=== PATIENT | female | born 1955 | race Caucasian/White ===

== ENCOUNTER → 2022-10-23 14:06 | Outpatient (CLI) | payer MEDICARE, BC, SELFPAY ==
--- NOTE | 2022-10-23 14:07 | US_ITS ---
FINAL REPORT CLINICAL HISTORY: pelvic mass FINDINGS: Transvaginal sonographic images of the pelvis were obtained. The uterus shows significant endometrial thickening for postmenopausal female. The endometrial stripe measures 14 mm. There is no evidence of uterine fibroids. The ovaries are unremarkable. There is no significant free fluid. IMPRESSION: Marked abnormal thickening of the endometrium in a postmenopausal female. Recommend gynecologic consultation for further evaluation. Reviewed, Interpreted and Dictated by Karoline Tsai MD Transcribed by Tash Sigala Authenticated and [facility]
== END ==
PROVIDERS: PCP Obstetrics & Gynecology; Visit Provider Obstetrics & Gynecology
DX: R19.00 Intra-abdominal and pelvic swelling, mass and lump, unspecified site (principal); R93.5 Abnormal findings on diagnostic imaging of other abdominal regions, including retroperitoneum
CPT/HCPCS: 76830

== ENCOUNTER → 2022-12-19 11:17 | Outpatient (CLI) | payer MEDICARE, BC, SELFPAY ==
[2022-12-19 12:06] LABS: Basophils % 0.6 % (0.1-2.0); Eosinophils # 0.1 K/mm3 (0.0-0.4); Eosinophils % 2.7 % (0.1-12.0); Hematocrit 41.3 % (37.0-47.0); Hemoglobin 13.3 g/dL (12.2-16.2); Lymphocytes # 1.4 K/mm3 (0.7-4.5); Lymphocytes % 36.2 % (10-50); Mean Corpuscular HGB Conc 32.2 g/dL (31.8-35.4); Mean Corpuscular Volume 96.1 fl (81-99); Mean Platelet Volume 7.5 fl (7.4-10.4); Monocytes # 0.2 K/mm3 (0.1-1.0); Monocytes % 5.8 % (1.7-9.3); Neutrophils # 2.1 K/mm3 (1.8-7.8); Neutrophils % 54.7 % (37.0-80.0); Platelet Count 234 K/mm3 (142-424); Red Cell Distribution Width 13.1 % (11.5-17.5); White Blood Count 3.8 K/mm3 (4.8-10.8)
[2022-12-19 12:41] LABS: Alanine Aminotransferase 22 U/L (12-78); Albumin Level 3.8 g/dl (3.5-5.0); Albumin/Globulin Ratio 1.5 (1.1-1.8); Alkaline Phosphatase 94 U/L (38-126); Anion Gap 10.4 mEq/L (5-15); Aspartate Amino Transferase 28 U/L (14-36); Bilirubin,Total 0.5 mg/dl (0.2-1.3); Blood Urea Nitrogen 20 mg/dl (7-17); Carbon Dioxide 25 mmol/L (22.0-30.0); Chloride 109 mmol/L (98-107); Estimated Glomerular Filt Rate 84 ml/min (>60); GFR (African American) 101 ML/MIN (>60); Globulin 2.5 g/dL (1.3-3.2); Glucose 71 mg/dl (74-100); Potassium 4.4 mmoL/L (3.5-5.1); Sodium 140 mmol/L (136-145); Total Protein,Serum 6.3 g/dl (6.3-8.2)
== END ==
PROVIDERS: Visit Provider Obstetrics & Gynecology
DX: R93.89 Abnormal findings on diagnostic imaging of other specified body structures (principal)
CPT/HCPCS: 36415; 80053; 85025

== ENCOUNTER 2022-12-31 06:02 | Day surgery (SDC) | payer MEDICARE, BC, SELFPAY ==
[2022-12-30 10:53] VITALS: BMI 23.0
[2022-12-31 06:17] VITALS: BP 118/71; PULSE 79; RESP 18; TEMP 36.3; O2SAT 93
--- NOTE | 2022-12-31 07:08 | P.PNANES_ITS ---
[facility] Disclaimer: The information contained in this section may have been updated after the patient was seen, as this information can be updated by other users. Medical History History of hypertension Pelvic organ prolapse quantification stage 3 cystocele Thickened endometrium Urge urinary incontinence Uterine prolapse Surgical History History of back surgery History of section History of tubal ligation Family History Other Family history of cancer Social History Smoking Status: Never smoker alcohol intake: never substance use type: denies use current occupational status: retired Travel in the last 8 weeks: None [facility] Anesthesia Checklist Patient Identification Patient Identification: Arm Band and Family Structural Data Admitted From: Home Planned Operative Procedure/s: D & C Hysteroscopy, novasure, myosure. Consent for Planned Operative Procedure(s) Verified: Yes Verified Documents: Surgical Consent NPO Status Verified Time NPO: 00:00 Additional verifications Patient : No Anesthesia Reactions: No Hx Blood Transfusions: No Blood Transfusion Reaction: No Cephalosporin Allergy: No Previous Colonoscopy: Yes Airway Assessment C-Spine Mobility Assessed: Yes TMJ Mobility Assessed: Yes Dentition: Good Dentition Neurological Assessment Level of Consciousness: Awake, Alert, Appropriate and Follows Commands Hx Seizures: No Numbness or tingling in extremities: No Anesthesia Plan Anesthesia Risk discussed: Yes ASA Class: II Anesthesia Type: General Preoperative Comments Pre-Operative Comments: Migraines. Mild hypertension.
--- NOTE | 2022-12-31 07:38 | EXP.ANES.CKL ---
[facility] Disclaimer: The information contained in this section may have been updated after the patient was seen, as this information can be updated by other users. Medical History History of hypertension Pelvic organ prolapse quantification stage 3 cystocele Thickened endometrium Urge urinary incontinence Uterine prolapse Surgical History History of back surgery History of section History of tubal ligation Family History Other Family history of cancer Social History Smoking Status: Never smoker alcohol intake: never substance use type: denies use current occupational status: retired Travel in the last 8 weeks: None [facility] Anesthesia Checklist Patient Identification Patient Identification: Arm Band and Family Structural Data Admitted From: Home Planned Operative Procedure/s: T & A Consent for Planned Operative Procedure(s) Verified: Yes Verified Documents: Surgical Consent and History and Physical NPO Status Verified Time NPO: 00:00 Additional verifications Patient : No Anesthesia Reactions: No Hx Blood Transfusions: No Blood Transfusion Reaction: No Cephalosporin Allergy: No Previous Colonoscopy: No Airway Assessment C-Spine Mobility Assessed: Yes TMJ Mobility Assessed: Yes Dentition: Good Dentition Neurological Assessment Level of Consciousness: Awake, Alert, Appropriate and Follows Commands Hx Seizures: No Numbness or tingling in extremities: No Anesthesia Plan Anesthesia Risk discussed: Yes ASA Class: I Anesthesia Type: General
[2022-12-31 08:11] VITALS: BP 97/62; PULSE 77; RESP 14; TEMP 36.1; O2SAT 91
--- NOTE | 2022-12-31 08:13 | EXP.OP.NOTE ---
Date of procedure: 12/31/22 Pre-op Diagnosis:: 1. Thickened endometrium Post-op Diagnosis:: 1. Thickened endometrium Procedure performed:: Hysteroscopy, dilation and curettage Surgeon:: Cinthia Horn DO Etcher Machine(s):: N/A ARCHITECT MANAGER:: Orion Silva Anesthesia: MAC Estimated blood loss (mL): 0 Clinical Note:: Ms Tash Juarez is a 67 yo very pleasant female who presents for preop visit. She went to [facility] ED for back pain/kidney pain. CT scan demonstrated kidney stones. CT scan noted presence of a uterus but possible pelvic mass. Patient denies pelvic pain. She thinks last period was about 15 years ago. Pelvic ultrasound 10/23/22 demonstrated significant endometrial thickening for postmenopausal female.? The endometrial stripe measures 14 mm. There is no evidence of uterine fibroids.? The ovaries are unremarkable.? There is no significant free fluid. Operative findings:: 1. Stage 2 uterine prolapse 2. stage 3 cystocele 3. Uterus midline, normal size and shape. No adnexal masses palpated on bimanual exam 4. On hysteroscopic exam, atrophic appearing endometrial tissue with intrauterine adhesions within the cavity, tubal ostia not visualized Operative note:: Risks, benefits and alternatives were discussed with the patient. Risks include but are not limited to bleeding, infection, uterine perforation and VTE. Patient voiced understanding and agreed to proceed. She was wheeled back to the operating room and placed under MAC without difficulty. She was placed in dorsal lithotomy position and prepped and draped in the normal sterile fashion. Straight catheter was used to drain the bladder. A bimanual exam was performed. A weighted Auvard was placed in the vaginal vault. Single tooth tenaculum was placed on anterior lip of the cervix. Uterus sounded to 7. Sequential Reg dilators were used to dilate the cervical os. Hysteroscope was tested inserted through the cervix without difficulty. Endometrial cavity was evaluated. See findings above. Pictures were taken. Hysteroscope was removed. A medium size sharp curette was inserted through the cervix into the uterine cavity and endometrium was curetted with a systematic back and forth movement in a 360 degree manner. All endometrial curettings will be sent to pathology for review. Instruments were removed from the vagina. Tenaculum site was hemostatic. Patient was awaken from anesthesia without difficulty. She was transported to recovery room in stable condition. Patient will be discharged home when awake and ambulating. She was given postop instructions as well as instructions to follow-up in the office in 2 weeks. Condition: stable Disposition: same day Specimens:: Endometrial curettings Complications:: None
[2022-12-31 08:21] VITALS: BP 100/60; PULSE 73; RESP 15; O2SAT 93
[2022-12-31 08:31] VITALS: BP 109/69; PULSE 79; RESP 15; O2SAT 94
[2022-12-31 09:00] VITALS: BP 112/61; PULSE 75; RESP 16; O2SAT 98
== END 2022-12-31 09:12 | disposition home or self-care (01) ==
PROVIDERS: Visit Provider Obstetrics & Gynecology
DX: N81.2 Incomplete uterovaginal prolapse (principal); N85.6 Intrauterine synechiae; R93.89 Abnormal findings on diagnostic imaging of other specified body structures
CPT/HCPCS: 58558; 88305

== ENCOUNTER 2023-10-15 13:37 | Outpatient (CLI) | payer MEDICARE, SELFPAY ==
--- NOTE | 2023-10-15 13:38 | US_ITS ---
PROCEDURE: US TRANSVAGINAL CLINICAL INDICATION: post menopausal bleeding COMPARISON: US US TRANSVAGINAL from 10/23/2022 FINDINGS: Transvaginal sonographic images of the pelvis were obtained. UTERUS: 5.5 cm x 3.9 cmx 3.2cm retroverted, retroflexed with a combined endometrial thickness of 15.1mm. The endometrium is markedly thickened, heterogenous and cystic. Suggest endometrial sampling. There is a small anterior fibroid measuring 0.5 cm x 0.4 cm x 0.7 cm. There are several small nabothian cysts in the cervix. LEFT OVARY: 1.9 cmx1.9 cmx0.8cm with a volume of 1.5ml. There is a small hyperechoic area in the left ovary measuring 0.7 cm. This has not changed significantly. RIGHT OVARY: 1.9 cmx 1.3 cmx1.0cm with a volume of 1.3ml. There is a 0.6 cm hyperechoic area in the right ovary that was seen on her last ultrasound and has not significantly changed. Both ovaries are seen and appear normal. Doppler flow to both ovaries are seen. There is no fluid in the cul-de-sac. IMPRESSION: 1. Small retroverted, retroflexed uterus. There is a 0.7 cm anterior fibroid. 2. The endometrium is markedly thickened, cystic and heterogenous. Suggest endometrial sampling. 3. Both ovaries are seen and appear normal and atrophic. 4. No fluid in the cul-de-sac. Dictated by: Manny Merino MD 10/16/2023 08:19 Manny Merino MD in OV 10/16/2023 08:19
== END 2023-10-15 23:59 | disposition home or self-care (01) ==
LOC: RAD 13:38
PROVIDERS: PCP Nurse Practitioner; Visit Provider Obstetrics & Gynecology
DX: N95.0 Postmenopausal bleeding (principal)
CPT/HCPCS: 76830

== ENCOUNTER 2023-12-21 11:34 | Outpatient (CLI) | payer MEDICARE, SELFPAY ==
[2023-12-21 11:58] LABS: Basophils % 1.1 % (0.1-2.0); Eosinophils # 0.1 K/mm3 (0.0-0.4); Hematocrit 41.2 % (37.0-47.0); Hemoglobin 13.8 g/dL (12.2-16.2); Lymphocytes # 1.3 K/mm3 (0.7-4.5); Lymphocytes % 33.5 % (10-50); Mean Corpuscular HGB Conc 33.5 g/dL (31.8-35.4); Mean Corpuscular Hemoglobin 33.5 pg (27.0-31.2); Mean Corpuscular Volume 99.8 fl (81-99); Mean Platelet Volume 7.8 fl (7.4-10.4); Monocytes # 0.2 K/mm3 (0.1-1.0); Monocytes % 4.6 % (1.7-9.3); Neutrophils # 2.3 K/mm3 (1.8-7.8); Neutrophils % 57.7 % (37.0-80.0); Platelet Count 275 K/mm3 (142-424); Red Blood Count 4.13 M/mm3 (4.20-5.40); Red Cell Distribution Width 13.3 % (11.5-17.5)
[2023-12-21 12:21] LABS: Alanine Aminotransferase 27 U/L (12-78); Albumin/Globulin Ratio 1.4 (1.1-1.8); Alkaline Phosphatase 114 U/L (38-126); Aspartate Amino Transferase 30 U/L (14-36); Bilirubin,Total 0.4 mg/dl (0.2-1.3); Blood Urea Nitrogen 17 mg/dl (7-17); Calcium 9.4 mg/dl (8.4-10.2); Carbon Dioxide 26 mmol/L (22.0-30.0); Chloride 110 mmol/L (98-107); Estimated Glomerular Filt Rate 100 ml/min (>60); GFR (African American) 121 ML/MIN (>60); Globulin 2.9 g/dL (1.3-3.2); Glucose 73 mg/dl (74-100); Sodium 141 mmol/L (136-145); Total Protein,Serum 6.9 g/dl (6.3-8.2)
== END 2023-12-21 23:59 | disposition home or self-care (01) ==
LOC: LAB 11:35
PROVIDERS: PCP Nurse Practitioner; Visit Provider Obstetrics & Gynecology
DX: N95.0 Postmenopausal bleeding (principal)
CPT/HCPCS: 36415; 80053; 85025

== ENCOUNTER 2023-12-24 06:04 | Day surgery (SDC) | payer MEDICARE, SELFPAY ==
[2023-12-22 13:49] VITALS: BMI 26.3
[2023-12-24] VITALS (10 sets, daily range): BP systolic 108–124; BP diastolic 58–78; PULSE 74–89; RESP 14–18; TEMP 36.1–36.4; O2SAT 94–99
[2023-12-24] MEDS: ACETAMINOPHEN 500MG TAB 1000 MG PO (06:34)
[2023-12-24] MEDS: LACTATED RINGERS 1000ML 1,000 ML 25 ML IV (06:34)
--- NOTE | 2023-12-24 07:01 | P.PNANES_ITS ---
[facility] Disclaimer: The information contained in this section may have been updated after the patient was seen, as this information can be updated by other users. Medical History Vasomotor symptoms due to menopause Postmenopausal bleeding Status post hysteroscopy History of hypertension Thickened endometrium Pelvic organ prolapse quantification stage 3 cystocele Uterine prolapse Urge urinary incontinence Surgical History History of hysteroscopy History of back surgery History of tubal ligation History of section Family History Other Family history of cancer Social History (Updated 12/24/23 @ 06:31 by Henna Mendoza RN) Smoking Status: Never smoker alcohol intake: never substance use type: denies use current occupational status: retired Travel in the last 8 weeks: None [facility] Anesthesia Checklist Patient Identification Patient Identification: Arm Band and Family Structural Data Admitted From: Home Planned Operative Procedure/s: Hysteroscopy. D &C. Myosure. Consent for Planned Operative Procedure(s) Verified: Yes Verified Documents: Surgical Consent and History and Physical Additional verifications Patient : No Anesthesia Reactions: No Hx Blood Transfusions: No Blood Transfusion Reaction: No Cephalosporin Allergy: No Previous Colonoscopy: Yes Airway Assessment Mallampati Score:: Class II C-Spine Mobility Assessed: Yes TMJ Mobility Assessed: Yes Dentition: Good Dentition Neurological Assessment Level of Consciousness: Awake, Alert, Appropriate and Follows Commands Hx Seizures: No Numbness or tingling in extremities: No Anesthesia Plan Anesthesia Risk discussed: Yes ASA Class: II Anesthesia Type: General Preoperative Comments Pre-Operative Comments: Hypertension...Takes Losartan. Migraines...Rx Verapamil. Diverticulosis.
[2023-12-24] MEDS: SODIUM CHLORIDE IRRIG SOLUTION 3,000 ML 25 ML IR (07:45)
--- NOTE | 2023-12-24 07:57 | EXP.OP.NOTE ---
Date of procedure: 12/24/23 Pre-op Diagnosis:: 1. Postmenopausal bleeding 2. Thickened endometrium Post-op Diagnosis:: 1. Postmenopausal bleeding 2. Thickened endometrium 3. Uterine perforation Procedure performed:: 1. Cervical dilation Surgeon:: Cinthia Horn DO Supervisor Machining(s):: N/a CORPORATE LEGAL MANAGER:: Orestes Keenan Anesthesia: GETA Estimated blood loss (mL): 0 Clinical Note:: Mrs Tash Juarez is a 68 yo who presents to [facility] for scheduled procedure. She had two episodes of bloody discharge that lasted one day. She is using size # 4 ring with support pessary for pelvic organ prolapse. She is using estrogen vaginal cream BID. Pelvic ultrasound 10/15/23 demonstrated 5.5 cm x 3.9 cmx 3.2cm retroverted, retroflexed with a combined endometrial thickness of 15.1mm. The endometrium is markedly thickened, heterogenous and cystic. Suggest endometrial sampling. There is a small anterior fibroid measuring 0.5 cm x 0.4 cm x 0.7 cm. There are several small nabothian cysts in the cervix. Operative findings:: 1. On bimanual exam, uterus retroverted, midline, normal size. No adnexal masses palpated. Cervix appeared grossly normal Operative note:: Risks, benefits and alternatives were discussed with the patient. Risks include but are not limited to bleeding, infection, uterine perforation and VTE. Patient voiced understanding and agreed to proceed. She was wheeled back to the operating room and placed under general anesthesia without difficulty. She was placed in dorsal lithotomy position and prepped and draped in the normal sterile fashion. Straight catheter was used to drain the bladder. A bimanual exam was performed. A weighted Auvard was placed in the vaginal vault. Single tooth tenaculum was placed on anterior lip of the cervix. Maxim Reg dilator was used to dilate cervical os. During attempted dilation it was felt that uterine wall was perforated. Uterine sound inserted and did not meet resistance. Decision was made to stop procedure secondary to uterine perforation. Instruments were removed from the vagina. Tenaculum site was hemostatic. Patient was awaken from anesthesia without difficulty. She was transported to recovery room in stable condition. Patient will be discharged home when awake and ambulating. She was given postop instructions as well as instructions to follow-up in the office in 2 weeks. Condition: stable Disposition: same day Specimens:: N/a Complications:: Uterine perforation
--- NOTE | 2023-12-24 08:12 | EXP.ANES.I ---
[facility] Anesthesia Record Part I Anesthesia Record I Intake, IV Amount: 600 Hydration: Adequate Estimated blood loss (mL): 10 Urine output (mL): 0 Blood Products used (#): none Blood Pressure: 119/63 SaO2: 94 Pulse Rate: 83 Airway Patency: Patent Respiratory Rate: 14 Temperature: 97 F Patient is:: Drowsy and Stable Stable to PACU at:: 08:05
[2023-12-24] MEDS: DOXYCYCLINE HYCL 100 MG TABLET 200 MG PO (08:38)
--- NOTE | 2023-12-24 09:23 | P.PNANES_ITS ---
[facility] Anesthesia Record Part II Anesthesia Record Part II Discharge Time: 08:35 Destination: Surgical Day Care (OP Surgery) PACU nurse assessment reviewed?: Yes Patient Condition:: Good Anesthesia Complications:: None Swallowing reflex intact?: Yes Airway Patency: Patent Cyanosis?: No Blood Pressure: 124/71 SaO2: 98 Respiratory Rate: 16 Pulse Rate: 84 Temperature: 97 F Mental Status: Alert & Oriented Pain level:: 0 Nausea and/or vomitting:: None Intake, IV Amount: 0 Hydration: Adequate
[2023-12-24 10:27] LABS: POC Glucose,Bedside 80 (70-110)
== END 2023-12-24 09:10 | disposition home or self-care (01) ==
PROVIDERS: PCP Nurse Practitioner; Visit Provider Obstetrics & Gynecology
PROC: (CPT 57800; principal; 2023-12-24 07:30)
DX: N92.4 Excessive bleeding in the premenopausal period (principal); R93.89 Abnormal findings on diagnostic imaging of other specified body structures; N99.71 Accidental puncture and laceration of a genitourinary system organ or structure during a genitourinary system procedure
CPT/HCPCS: 57800; 82962; J2250; J3010; J7120